=== PATIENT | male | born 1945 | race Caucasian/White ===

== ENCOUNTER → 2021-11-01 09:13 | Outpatient (BNVA) | payer OTHER, SELFPAY | PROVIDERS: Family Provider Emergency Medicine Emergency Medical Services; PCP Emergency Medicine Emergency Medical Services; Visit Provider Urology | DX: R31.29 Other microscopic hematuria (principal) | CPT/HCPCS: 51741; 51798; 52000; 81003; 88112; 99203 ==

== ENCOUNTER → 2021-11-28 12:39 | Outpatient (BNVA) | payer OTHER, SELFPAY | PROVIDERS: Family Provider Emergency Medicine Emergency Medical Services; PCP Emergency Medicine Emergency Medical Services; Visit Provider Internal Medicine Pulmonary Disease | DX: J44.9 Chronic obstructive pulmonary disease, unspecified (principal); F17.210 Nicotine dependence, cigarettes, uncomplicated; J90 Pleural effusion, not elsewhere classified; Z90.2 Acquired absence of lung [part of]; Z98.890 Other specified postprocedural states | CPT/HCPCS: 99204 ==

== ENCOUNTER 2021-12-06 08:21 | Outpatient (CLI) | payer OTHER, SELFPAY ==
--- NOTE | 2021-12-06 08:30 | CT_ITS ---
WS: [id number] CT ABDOMEN PELVIS TECHNIQUE: Noncontrast CT of the abdomen and contrast-enhanced CT of the abdomen and pelvis with indigo nal and sagittal reformatted images. CLINICAL INFORMATION: Mircoscopic Hematuria COMPARISON: None. DLP: 2394.[address] scans at [facility] use at least one of these dose optimization techniques: automated e xposure control; mA and/or kV adjustment per patient size (includes targeted exams where dose is matc hed to clinical indication); or iterative reconstruction. FINDINGS: Mild diffuse fatty infiltration liver. Normal portal vein and splenic vein. Normal GE junction. Aruna l spleen. Subsegmental atelectasis in the RIGHT lower lobe. Small RIGHT pleural effusion. Normal panc reatic parenchymal enhancement. Adrenal glands are normal. Normal renal parenchymal enhancement. No h ydronephrosis. No obstructing renal or ureteral calculi. No visualized renal lesions. Normal ureteral excretion on t he delayed images. Normal filling of the bladder. No filling defects in the bladder. Mild diffuse bella dder wall thickening. Enlarged prostate measuring 3.8 x 2.5 CM. Mild bladder outlet obstruction. Moderate aortic calcification. Celiac and SMA are patent. Mild to moderate stenosis at the SMA origin which remains patent. Rectal constipation with distention. Sigmoid diverticulosis. No evidence of acute diverticulitis. Nor mal appendix in the RIGHT lower quadrant. Thoracolumbar scoliosis. Disc space narrowing worse at L1-2 and L4-5 with endplate sclerosis. Slightly aneurysmal infrarenal abdominal aorta measuring 2.2 cm in maximum AP dimension. CT/CT abdomen pelvis wo/w [id number] IMPRESSION: 1. No hydronephrosis in either kidney. No obstructing renal or ureteral calcul i. 2. Normal renal parenchymal enhancement. No visualized renal lesions. 3. Normal excretion on the delayed imaging. 4. Enlarged prostate with mild bladder outlet obstruction. Recommend correlati on PSA. 5. Slightly aneurysmal infrarenal abdominal aorta measuring 2.2 cm in maximum dimension with moderate aortic calcification. 6. Sigmoid diverticulosis. 7. Rectal distention with constipation.
[2021-12-06] MEDS: iohexol 350 mg/mL 100 mL Btl IV (09:02)
[2021-12-06 09:35] LABS: Blood Urea Nitrogen 8 mg/dL (8-23)
== END 2021-12-06 08:22 | disposition home or self-care (01) ==
LOC: RAD 08:26
PROVIDERS: PCP Emergency Medicine Emergency Medical Services; Visit Provider Urology
DX: R31.29 Other microscopic hematuria (principal)
CPT/HCPCS: 74178; 82565; 84520; 99213

== ENCOUNTER 2021-12-24 09:36 | Outpatient (CLI) | payer OTHER, SELFPAY ==
--- NOTE | 2021-12-24 11:15 | CT_ITS ---
WS: [id number] LDCT LUNG CANCER SCREENING HISTORY: lung screening TECHNIQUE: Axial imaging performed from the apices to 1 cm below the costophrenic angles. Coronal and sagittal reformats are submitted with axial MIP series. All CT scans at [facility] use at least one of these dose optimization techniques: automated exposure control; mA and/or kV adjustment per patient size (includes targeted exams where dose is matched to clinical indication); or iterativ e reconstruction. DLP: 77.21 mGy.cm DIvol: Mean CTDIvol: 1.60 (mGy) COMPARISON: 10/22/2017 Diagnostic quality: Satisfactory Lung Nodules: Centrilobular emphysema. RIGHT lower lobectomy. Pleural thickening in the posterior RIG HT upper thorax. Dystrophic calcifications central RIGHT lung probably at the surgical site. There do es appear to be some adjacent sutures. No pulmonary mass. No nodules are identified. There is a very small focus of groundglass attenuation LEFT upper lobe, image 81 of series 5 measuring 6 mm. Heart: Normal size heart. Slight shift of mediastinal structures to the RIGHT due to the lobectomy. E xtensive coronary artery calcifications. No effusion. Other findings: Atherosclerosis aorta. Mediastinal and hilar calcified lymph nodes. No enlarged lymph nodes are identified. CT/CT lung screening [id number] IMPRESSION: LUNG-RADS: 1-Negative FOLLOW UP: 12 Month: Continue annual screening with LDCT OTHER FINDINGS (S MODIFIER): None.
== END 2021-12-24 09:37 | disposition home or self-care (01) ==
LOC: RT 09:37
PROVIDERS: PCP Emergency Medicine Emergency Medical Services; Visit Provider Internal Medicine Pulmonary Disease
DX: J44.9 Chronic obstructive pulmonary disease, unspecified (principal); Z12.2 Encounter for screening for malignant neoplasm of respiratory organs; F17.210 Nicotine dependence, cigarettes, uncomplicated
CPT/HCPCS: 71271; 94060; 94618; 94726; 94729; J7611

== ENCOUNTER → 2022-08-25 15:16 | Outpatient (BNVA) | payer OTHER, SELFPAY | PROVIDERS: PCP Emergency Medicine Emergency Medical Services; Referring Provider Emergency Medicine Emergency Medical Services; Visit Provider Dermatology | DX: L72.0 Epidermal cyst (principal); L57.0 Actinic keratosis; L98.8 Other specified disorders of the skin and subcutaneous tissue; L57.8 Other skin changes due to chronic exposure to nonionizing radiation; L82.1 Other seborrheic keratosis; L73.8 Other specified follicular disorders; D18.01 Hemangioma of skin and subcutaneous tissue | CPT/HCPCS: 11443; 17000; 99203 ==

== ENCOUNTER 2023-01-20 10:48 | Outpatient (CLI) | payer OTHER, SELFPAY ==
--- NOTE | 2023-01-20 11:00 | USCV_ITS ---
Juan Jose Carias Age: 77 Gender: M : 1945 Exam Date: 01/20/2023 11:38 Ordering Phys: Bong Anaya Technologist: Exam Location: [facility] [place] Indication: sob chest pain BP: 130 / 70 HR: 77 Rhythm: Sinus Technical Quality: Adequate MEASUREMENTS (Male / Female) Normal Values 2D ECHO LV Diastolic Diameter PLAX 3.7 cm 4.2 - 5.9 / 3.9 - 5.3 cm LV Systolic Diameter PLAX 2.7 cm IVS Diastolic Thickness 1.0 cm 0.6 - 1.0 / 0.6 - 0.9 cm IVS Systolic Thickness 1.2 cm LVPW Diastolic Thickness 1.0 cm 0.6 - 1.0 / 0.6 - 0.9 cm LVPW Systolic Thickness 1.5 cm LVOT Diameter 2.0 cm LV Ejection Fraction 2D Teich 51.2 % LV Ejection Fraction MOD 2C 75.6 % LV Ejection Fraction 2C AL 77.2 % LA Diameter 3.3 cm IVC Diameter 2.1 cm M-MODE Aortic Annulus Diameter 3.5 cm LA Ao Ratio MM 0.9 MV E Point Septal Separation 0.8 cm DOPPLER AV Peak Velocity 188.0 cm/s LVOT Peak Velocity 98.0 cm/s AV Area Cont Eq vti 1.4 cm squared AV Area Cont Eq pk 1.7 cm squared MV Area PHT 5.0 cm squared Mitral E to A Ratio 1.0 MV E' Velocity 50.5 cm/s Mitral E to MV E' Ratio 7.4 Mitral E to LV E' Lateral Ratio 6.8 Mitral E to LV E' Septal Ratio 8.2 TR Peak Velocity 223.0 cm/s TR Peak Gradient 19.9 mmHg RV Acceleration Time 0.1 s FINDINGS Left Ventricle Normal left ventricular size, systolic function and wall thickness, with no regional wall motion abnormalities. Left ventricular ejection fraction is estimated at 65-70 %. Right Ventricle Normal right ventricular size and systolic function. Right Atrium Normal right atrial size. Left Atrium Normal left atrial size. Mitral Valve Thickened mitral valve. Trace mitral valve regurgitation. Aortic Valve Thickened aortic valve. No aortic valve stenosis. No aortic valve regurgitation. Tricuspid Valve Structurally normal tricuspid valve. Normal RV and pulmonary pressures Pulmonic Valve Structurally normal pulmonic valve. Pericardium No pericardial effusion. Aorta Normal size aortic root and proximal ascending aorta. IVC Normal IVC dimension with >50% respiratory change of the inferior vena cava. CONCLUSIONS 1. Normal left ventricular function. LVEF 65 to 70% 2. No significant valvular abnormality noted 3. Normal right heart and pulmonary pressures. Nazia Bassett MD (Electronically Signed) Final Date: 20 January 2023 15:09 S
[2023-01-20 11:15] VITALS: PULSE 76; RESP 18; O2SAT 98
[2023-01-20 11:19] VITALS: PULSE 75
[2023-01-20] MEDS: albuterol 2.5 mg/3 mL Neb INHALATION (11:28)
== END 2023-01-20 10:49 | disposition home or self-care (01) ==
LOC: RT 10:49
PROVIDERS: PCP Emergency Medicine Emergency Medical Services; Visit Provider Chiropractor
DX: R06.02 Shortness of breath (principal); R07.9 Chest pain, unspecified
CPT/HCPCS: 93306; 94060; J7613

== ENCOUNTER 2023-09-22 09:10 | Outpatient (CLI) | payer OTHER, SELFPAY ==
--- NOTE | 2023-09-22 09:12 | PETR_ITS ---
PROCEDURE INFORMATION: Exam: PET/CT Skull Base to Mid-thigh Exam date and time: 09/22/2023 9:51 AM Age: 78 years old Clinical indication: Abnormal findings; Abnormal CT scan; Additional info: Abnormal ldct LABS AND CLINICAL REPORTS: Glucose: 104 mg/dl Treatment strategy for malignancy (PET staging): Restaging (PS) TECHNIQUE: Imaging protocol: Following at least four-hour fasting and following the injection of radiopharmaceutical, low dose CT images were obtained. Then, PET images were obtained. Attenuation corrected images were constructed using the CT scan. Fused images of PET and CT were reviewed. The standardized uptake values (SUV) reported below are maximum values within a region of interest, expressed in gm/ml. Exam includes orbital meatal line to mid-thigh. Radiopharmaceutical: 13.2 mCi F-18 FDG (Fluorodeoxyglucose), IV. Time of imaging post radiopharmaceutical administration: 1 hour Injection site: Left antecubital vein COMPARISON: PET-CT 12/12/2017, CT chest lung screening 12/24/2021 FINDINGS: Brain: Visualized brain has normal physiologic uptake. Pharynx: No abnormal uptake. Larynx: No abnormal uptake. Lungs, pleura and trachea: No abnormal uptake. Status post right lower lobectomy. Dense dependent consolidation in the right lung is suggestive of atelectasis. 7 mm calcified nodule in the right upper lobe noted on axial image 91. 6 mm ground-glass opacity nodule in the left upper lobe on axial image 68 is stable since prior exam of 2018 compatible with benign finding. Mild centrilobular emphysema. No pleural effusion. Heart: Normal physiologic uptake. There is no cardiomegaly. Coronary artery calcification is present. There is no pericardial effusion. Mediastinal space: No abnormal uptake. Liver: No abnormal uptake. Gallbladder and biliary ducts: No abnormal uptake. No calcified gallstones. Pancreas: No abnormal uptake. Spleen: No abnormal uptake. No splenomegaly. Adrenal glands: No abnormal uptake. No lung nodules. Kidneys and ureters: Normal physiologic uptake. No hydronephrosis. Stomach and bowel: No abnormal uptake. Vasculature: No abnormal uptake. No aortic aneurysm. Lymph nodes: No abnormal uptake. No lymphadenopathy in the head, neck, chest, abdomen, pelvis, and extremities. There is stable sequela of exposure to granulomatous disease with calcified mediastinal and bilateral hilar lymph nodes. Skeleton: No abnormal uptake in the visualized axial and appendicular skeleton. Soft tissues: No abnormal uptake in the visualized head, neck, chest, abdomen, pelvis, and extremities. Small fat containing right inguinal hernia. PET/PET skull to thigh SUBS [id number] IMPRESSION: No abnormal radiotracer uptake.
== END 2023-09-22 09:11 | disposition home or self-care (01) ==
PROVIDERS: PCP Emergency Medicine Emergency Medical Services; Visit Provider Nurse Practitioner Family
DX: R91.8 Other nonspecific abnormal finding of lung field (principal); Z90.2 Acquired absence of lung [part of]; I70.0 Atherosclerosis of aorta; I89.8 Other specified noninfective disorders of lymphatic vessels and lymph nodes; K40.91 Unilateral inguinal hernia, without obstruction or gangrene, recurrent
CPT/HCPCS: 78815; A9552

== ENCOUNTER → 2023-11-20 11:06 | Outpatient (BNVA) | payer OTHER, SELFPAY | PROVIDERS: PCP Emergency Medicine Emergency Medical Services; Visit Provider Student in an Organized Health Care Education/Training Program | DX: Z12.11 Encounter for screening for malignant neoplasm of colon (principal) | CPT/HCPCS: 99204 ==

== ENCOUNTER 2024-01-19 10:20 | Day surgery (SDC) | payer OTHER, SELFPAY ==
--- OUTSIDE RECORDS SUMMARY | 2023-12-17 09:23 | XMS_ITS ---
Author Name Unknown Organization [facility] Address [address] [place] [address], [place] [address] Care Team Providers Care Electrical Assistant Name Role Phone TJ TAVERAS, LAURENT Primary Care Provider Unavailab Flo Ruiz Unavailable [phone] [place] Auth. - Popular [place] Unavailable Unavail able REASON FOR VISIT Disc Encounters Encounter Location Date Provider Diagnosis [facility] [address] [place] [address] [place] [address] 09/21/2023 Flo Mckeon Plan Of Treatment Next Appt Details Provider Name:Flo Mckeon, 09/08/2024 11:10:00 AM, [address] [place] [address] LAILA Begum, [place], [address], Progress Notes * SILAS PYLE GDOB:[birth year] (78 yo M)Acc No.[id number]:09/21/2023 Patient:?SILAS PYLE :1945???Age:78 Y???Sex:Male Address:[address] [place] [address] , [place] [address] * true * Date:? Generated for Printi ng/Abhishekg/eTransmitting on:?12/17/2023 09:23 AM CDT
--- OUTSIDE RECORDS SUMMARY | 2023-12-17 09:23 | XMS_ITS ---
Author Name Unknown Organization [facility] Address [address] [place] [address] Care Team Providers Care Lehr Operator Name Role Phone LAURENT SPENCER MD Primary Care Provider Unavailab Flo Ruiz Unavailable [phone] [place] Auth. - Popular [place] Unavailable Unavail able Allergies No Known Allergies REASON FOR VISIT [id number], Abnormal chest CT Medications Medication SIG (Take, Route, Fr equency, Duration) Notes Start Date End Date Status Vitamin B 12 500 MCG 1 tablet Orally Once a day Active Vitamin D3 Complete Active Terazosin HCl 1 MG 1 capsule Orally fou r times a day Active PreserVision AREDS - as directed Orally Active Social History Tobacco Use: Social History Observation Description Date Details (start date - stop date) Current Smoker NA - NA Tobacco Control (Standard) Question Answer Notes Tobacco use: Current smoker How often do you smoke cigarettes? Every day How many cigarettes a day do you smoke? 11-20 How soon after you wake up do you smoke your fir st cigarette? 6-30 minutes Problems Problem Type SNOMED Code ICD Code Onset Dates Problem Status W/U Status Risk Notes Problem Radiology result abnormal (525822620) Abnormal chest CT (R93.89) Active confirmed Problem Centrilobular emphysema (52435078) Centrilobular emphysema (J43.2) Active confirmed Problem Tobacco user (140026186) Cigarette nicotine dependence without complication (F17.210) Active confirmed Problem COPD - Chronic obstructive pulmonary disease (05489444) COPD (chronic obstructive pulmonary disease) (J44.9) Active confirmed Vital Signs Temperature 97.8 degrees Fahrenheit 09/28/19 24 Blood pressure systolic 141 mm Hg 09/28/19 24 Blood pressure diastolic 74 mm Hg 024 Heart Rate 63 /min 09/28/2023 Respiratory Rate 19 /min 09/28/2023 Weight 125.44 lbs 09/28/2023 Weight-kg 56.9 kg 09/28/2023 Encounters Encounter Location Date Provider Diagnosis [facility] [address] [place] [address] DR WETZEL TAM[place]KO, [place] [address] 09/28/2023 Flo Mckeon Centrilobular emphys azalia J43.2 ; Cigarette nicotine dependence without complication F17.210 ; Encounter for smoking cessation counseling Z71.6 and COPD (chronic obstructive pulmonary disease) J44.9 Assessments Encounter Date Diagnosis (ICD Code) Assessment Notes Treat ment Notes Treatment Clinical Notes 09/28/2023 Centrilobular emphysema (ICD-10 - J43.2) Continue Wixela 09/28/2023 Cigarette nicotine dependence without complication (ICD-10 - F17.210) He smoked 1 pack of cigarettes a day for 53 years and has smoked a half pack a day for the last 5 years. Smoking cessation emphasized. Obtain CT scan for lung cancer screening August 26, 2024. 09/28/2023 Encounter for smoking cessation counseling (ICD-10 - Z71.6) 09/28/2023 COPD (chronic obstructive pulmonary disease) (ICD-10 - J44.9) [facility] History of albuterol. 09/28/2023 Other Juliane, Neha howe, am scribing for and in the presence of Dr. Flo Mckeon. I, Dr. Flo Mckeon, personally performed the services described in this documentation, as scribed by Neha Yoder in my presence, and is both accurate and complete. Plan Of Treatment Treatment Notes Assessment Notes Centrilobular emphysema Continue Wixela Cigarette nicotine dependenc e without complication He smoked 1 pack of cigarettes a day for 53 years and has smoked a half pack a day for the last 5 years. Smoking cessation emphasized. Obtain CT scan for lung cancer screening August 26, 2024. COPD (chronic obstructive pulmonary dise ase) [facility] History of albuterol. Future Test Test Name Order Date CT Lung Cancer Screening Low Dose-[id number] 08/26/2024 Next Appt Details Follow Up: August 2024, Reason : review CT scan for lung cancer screening Provider Name:Flo Mckeon, 09/08/2024 11:10:00 AM, [address] [place] [address] [address]MAN, [place], [address], Progress Notes * SILAS PYLE GDOB:[birth year] (78 yo M)Acc No.[id number]:09/28/2023 Progress Notes Patient:?SILAS YPLE Provider:?Flo Mckeon MD :1945???Age:78 Y???Sex:Male Madan e:09/28/2023 Address:[address] [place] [address] , [facility] Pcp:LAURENT SPENCER MD Check In:02:00 PM CSTCheck O ut:02:59 PM EP TECH Subjective: * Chief Complaints: * ???[id number] chest CT * HPI: ???::?The patient is a 78-year-old male referred for evaluation and management of abnormal chest CT findings. I reviewed the chest images obtained on August 27, 2023 showing emphysematous changes. He has a history of lobectomy in the past for a benign nodule apparently.? He has had a history of a COPD diagnosis,?diagnosed 10 years ago. He is doing well on Wixela. He is a current smoker, smoking a pack a day for 53 years before cutting down to smoking half a pack a day in the last 5 years. * ROS:?Review of systems of chart has been reviewed and scanned in by me. * Medical History:? * Surgical History:?Lobectomy Hernia * Hospitalization/Major Diagno stic Procedure:?See Surgical HX * Family History:?Father: dece ased, Says not medical issues.?Mother: , Says no medical issues.? * Social History:?Tobacco Use:?Tobacco Control (Standard)?Tobacco use:?Current smoker ?How often do you smoke cigarettes??Every day ?How many cigarettes a day do you smoke??11-20 ?How soon after you wake up do you smoke your first cigarette??6-30 minutes * Medications:?TakingPreserVis ion AREDS - Tablet as directed Orally Vitamin D3 Complete Vitamin B 12 500 MCG Tablet 1 tablet Orally Once a day Terazosin HCl 1 MG Capsule 1 capsule Orally four times a day Medication List reviewed and reconciled with the patientTaking PreserVision AREDS - Tablet as directed Orally Taking Vitamin D3 Complete Taking Vitamin B 12 500 MCG Tablet 1 tablet Orally Once a day Taking Terazosin HCl 1 MG Capsule 1 capsule Orally four times a day Medication List reviewed and reconciled with the patient * Allergies:?N.K.D.A.no[Allerg ies Verified] Objective: * Vitals:?Wt:125.44lbs, Wt-k.9 kg, Temp:97.8F, BP:141/74mm Hg, HR:63/min, RR:19/min, Inhaled Oxygen Flow Rate: 95 L/min, O2 Source: RA. * Examination: ???General Examination: ?GENERAL APPEARANCE:?awake, not in respiratory distress.?EYES:?extraocular muscles intact.?EARS:?normal hearing.?SKIN:?warm and moist.?HEART:?no murmurs, rubs, gallops, no edema.?LUNGS:?no wheezes, rales, rhonchi, diminished breath sounds throughout.?NEUROLOGIC:?alert, oriented.?PSYCH:?normal mood with appropriate affect.? Assessment: * Assessment: 1.?Centrilobular emphysema - J43.2 (Primary)???2.?Cigarette nicotine dependence without complication - F17.210???3.?Encounter for smoking cessation counseling - Z71.6???4.?COPD (chronic obstructive pulmonary disease) - J44.9??? Plan: * Treatment: 2.?Cigarette nicotine depend ence without complication?Imaging: CT Lung Cancer Screening Low Dose-41665 (Ordered for 08/26/2024) Notes: He smoked 1 pack of cigarettes a day for 53 years and has smoked a half pack a day for the last 5 years. Smoking cessation emphasized. Obtain CT scan for lung cancer screening August 26, 2024. ?? 3.?COPD (chronic obstructive pulmonary disease)? Notes: [facility] W[facility]ela[facility] History of albuterol. ?? 4.?Others? Clinical Notes: I, Neha Yoder, am scribing for and in the presence of Dr. Flo Mckeon. I, Dr. Flo Mckeon, personally performed the services described in this documentation, as scribed by Neha Yoder in my presence, and is both accurate and complete.?? * ??Immunizations:? ??Immunization record has be en reviewed and updated. * Procedure Codes:? * Follow Up:?August 2024 (Reason : review CT scan for lung cancer screening) Care Plan: * Problems:? * Billing Information: * Visit Code:? 42842 Office Visit, New Pt., Level 4. * Procedure Codes:? * Sign off status: Completed true * Provider:?Flo Mckeon MD Date:?09/28/19 24 Generated for Meagan jauregui/Rafy/Pacoitting on:?12/17/2023 09:23 AM CDT History and Physical Notes * Examination Category Sub-Category Detail Notes General Examination GENERAL APPEARANCE: awake, n ot in respiratory distress EYES: extraocular muscles intact EARS: normal hearing HEART: no murmurs, rubs, ga llops, no edema LUNGS: no wheezes, rales, r honchi, diminished breath sounds throughout NEUROLOGIC: alert, oriented SKIN: warm and moist PSYCH: normal mood with francisco ropriate affect
--- OUTSIDE RECORDS SUMMARY | 2023-12-17 09:23 | XMS_ITS | Patient Health Record ---
Author Name Unknown Organization [facility] Address [address] [place] [address] Care Team Providers Care [employer] Name Role Phone TJ TAVERAS, LAURENT Primary Care Provider Unavailab Flo Ruiz Unavailable [phone] [place] Auth. - Popular [place] Unavailable Unavail able Allergies No Known Allergies Results Component Value Reference Range Notes zzzCT Outside CD Reviewed date:09/22/2023 10:27:46 AM Interpretation: Performing Lab: Notes/Report: cro=[id number]=iSite [id number] &org=iSit e Reason For Referral Reason Abn CT: [facility] ed Diagnosis 1 Other nonspecific ab normal finding of lung field (R91.8) Referring Provider First Name Porter Blu Referring Provider Last Name AL Ref[facility] Organization [facility] Referred Provider Flo Mckeon Referred Address [address] [place] [address] [address],[place], [place],[address], Referred Provider Specialty Pulmonary Di seases General Notes Yane Wisdom 024 02:47:46 PM >Disc Received 09/18/2023, Yane Wisdom 09/22/2023 02:49:30 PM >09/21: Gave report to PRVDR to review, Yane Wisdom 09/22/2023 03:02:04 PM >09/21: 1 wk per Artis Mckeon Marie 09/22/2023 03:40:31 PM >Scheduled 09/28/23 @ 2:30 PM Referral Priority Routine Medications Medication SIG (Take, Route, Fr equency, [...] Problem Status W/U Status Risk Notes Problem Centrilobular emphysema (64569716) Centrilobular emphysema (J43.2) Active confirmed Problem Radiology result abnormal (207094638) Abnormal chest CT (R93.89) Active confirmed Problem Tobacco user (915415309) Cigarette nicotine dependence without complication (F17.210) Active confirmed Problem COPD - Chronic obstructive pulmonary disease (54012779) COPD (chronic obstructive pulmonary disease) (J44.9) Active confirmed Vital Signs Heart Rate 63 /min 09/28/2023 Temperature 97.8 degrees Fahrenheit 09/28/2023 Respiratory Rate 19 /min 09/28/2023 Blood pressure diastolic 74 mm Hg 09/28/2023 Weight-kg 56.9 kg 09/28/2023 Blood pressure systolic 141 mm Hg 09/28/2023 Weight 125.44 lbs 09/28/2023 Encounters Encounter Location Date Provider Diagnosis [facility] [address] [place] [address] [place] [address] 09/28/2023 Flo Mckeon Centrilobular emphys azalia J43.2 ; Cigarette nicotine dependence without complication F17.210 ; Encounter for smoking cessation counseling Z71.6 and COPD (chronic obstructive pulmonary disease) J44.9 [facility] [address] [place] [address] [place] [address] 09/21/2023 Flo Mckeon Assessments Encounter Date Diagnosis (ICD Code) Assessment [...] [facility] History of albuterol. 09/28/2023 Other I, Neha howe, am scribing for and in the presence of Dr. Flo Mckeon. I, Dr. Flo Mckeon, personally performed the services described in this documentation, as scribed by Neha Yoder in my presence, and is both accurate and complete. Plan Of Treatment Next Appt Details Provider Name:Flo Mckeon, 09/08/2024 11:10:00 AM, [address] [place] [address] [place], [address], Insurance Providers Payer Name Payer Address Payer Phone Subscriber Number Group Number Insured Name Patient Relationship to Insured Coverage Start Date Coverage End Date [employer] [address] [place] [phone] [id number] SILAS PYLE Self - patient is the insured Medical (General) History Medical History History ICD Code measles hernia back trouble hemorrhoids Surgical History Surgery Date(Month/Year) Lobectomy Hernia Hospitalization History Reason Date(Month/Year) See Surgical HX
[2024-01-19 10:32] VITALS: BP 97/50; PULSE 77; RESP 16; TEMP 36.4; O2SAT 93
[2024-01-19] MEDS: sodium chloride 0.9% 1,000 ML 30 ML IV (10:38)
[2024-01-19 10:40] VITALS: BMI 20.3
--- NOTE | 2024-01-19 11:31 | ANES.PREANE2 ---
Pre-Anesthetic Assessment Height/Weight: Height 1.7 m Weight 58.967 kg Temp Pulse Resp BP Pulse Ox O2 Del Method 97.6 F 77 16 97/50 93 Room Air 01/19/24 10:32 01/19/24 10:32 01/19/24 10:32 01/19/24 10:32 01/19/24 10:32 01/19/24 10:32 Operation Date: 01/19/24 11:30 Proposed Procedures p Colonoscopy 56359, G0105, Z12.11(Not Applicable) - Tej Morales MD Familial anesthetic complications: None Was Beta Vanessa taken within 24 hours: N/A Was Clonidine taken within 24 hours: N/A Last intake: Intake Last Liquid Date 01/18/24 Last Liquid Time 22:30 Last Solid Date 01/17/24 Last Solid Time 17:00 Social Alcohol (4-5 beers a day) and Tobacco 1 pack(s) per day Exam alert, oriented x 3 and regular rate & rhythm BBS diminished Airway Submandibular: within normal limits (Jaw pops ) Cervical ROM: within normal limits Mallampati: Class II Dentition: false History/ROS No significant history except as noted and No significant complaints Pulmonary Chronic Obstructive Pulmonary Disease and Exertional Dyspnea Right lower lobe lobectomy and wedge resection CV/HEM Coronary Artery Disease CONCLUSIONS 1. Normal left ventricular function. LVEF 65 to 70% 2. No significant valvular abnormality noted 3. Normal right heart and pulmonary pressures. None reported Hepatic None reported GI Hiatal Hernia Musc/skel Lower Back Pain, Osteoarthritis/DJD and Weakness (Can perform ADLs without issue) Neuropsych Neuropathy Anesthetic Plan ASA status: 3 Anesthesia: Anesthesia Evaluation, General and MAC Risk of > 500 ml blood loss (7ml/kg in children): No Medications/Allergies Home Medications Medication Instructions Recorded Confirmed Last Taken Type terazosin 2 mg capsule 8 mg PO DAILY 11/01/21 01/19/24 01/14/24 History albuterol sulfate 90 mcg/actuation 2 puff inhalation Q6H PRN 11/28/21 01/19/24 01/17/24 History aerosol inhaler Shortness Of Breath Or Wheezing fluticasone 250 mcg-salmeterol 50 1 inh inhalation BID #60 ea 12/17/22 01/19/24 01/14/24 Rx mcg/dose blistr powdr for inhalation ([facility]ix[facility] Inhub) ondansetron 8 mg disintegrating 8 mg PO Q8H PRN nausea and 01/18/24 01/19/24 01/17/24 Rx tablet vomiting #7 tabs Allergies Allergy/AdvReac Type Severity Reaction Status Date / Time No Known Allergies Allergy Verified 01/14/24 10:51 Current Medications Generic Name Dose Route Start Last Admin Trade Name Freq PRN Reason Stop Dose Admin Sodium Chloride 1,000 mls @ 30 mls/hr 01/19/24 10:30 01/19/24 10:38 Sodium Chloride 0.9% IV 30 mls/hr .Q24H PEDRO Administration PFSH Anesthesia Medical History COPD, severe Surgical History (Updated 11/20/23 @ 11:14 by Glory Mercado) History of lobectomy of lung History of lung surgery Family History Mother , in 80s Healthy adult Father , at age 92 Healthy adult Social History Smoking and tobacco/nicotine status: current every day tobacco/nicotine user cigarettes Packs smoked per day: 1 Years cigarettes smoked: 56 Alcohol intake: current Alcohol intake frequency: 0-2 Drinks per Day Adopted: No Lives independently: Yes Household members: spouse Marital status: Current occupational status: employed and retired Data Anesthesia Cardiac Studies: Echocardiogram 01/20/23
--- NOTE | 2024-01-19 12:01 | W.PM.OPSFHP ---
Same Day Surgery H&P Indication for Procedure/HPI DATE OF PROCEDURE: January 19, 2024 CHIEF COMPLAINT/INDICATIONFOR SURGICAL PROCEDURE: screening colonoscopy PREOP DIAGNOSIS: screening colonoscopy PLANNED PROCEDURE: Operation Date: 01/19/24 11:30 Proposed Procedures p Colonoscopy 81454, G0105, Z12.11(Not Applicable) - Tej Morales MD Medications/Allergies* Home Medications Medication Instructions Recorded Confirmed Type terazosin 2 mg capsule 8 mg PO DAILY 11/01/21 01/19/24 History albuterol sulfate 90 mcg/actuation 2 puff inhalation Q6H PRN 11/28/21 01/19/24 History aerosol inhaler Shortness Of Breath Or Wheezing Allergies/Adverse Reactions Allergy/AdvReac Type Severity Reaction Status Date / Time No Known Allergies Allergy Verified 01/14/24 10:51 Current Medications: Generic Name Dose Route Start Last Admin Trade Name Freq PRN Reason Stop Dose Admin Sodium Chloride 1,000 mls @ 30 mls/hr 01/19/24 10:30 01/19/24 10:38 Sodium Chloride 0.9% IV 30 mls/hr .Q24H PEDRO Administration Pertinent History/Comorbid Conditions* Medical History (Updated 12/01/21 @ 14:02 by Arnel Palafox MD) COPD, severe Surgical History (Updated 12/01/21 @ 14:02 by Arnel Palafox MD) History of lobectomy of lung History of lung surgery Family History (Updated 11/01/21 @ 09:52 by Humphrey Reyes) Father, at age 92 Mother, in 80s Healthy adult Mother Father Social History Smoking and tobacco/nicotine status: current every day tobacco/nicotine user cigarettes Packs smoked per day: 1 Years cigarettes smoked: 56 Alcohol intake: current Alcohol intake frequency: 0-2 Drinks per Day Adopted: No Lives independently: Yes Household members: spouse Marital status: Current occupational status: employed and retired Pertinent Exam Findings alert, oriented x 3, clear to auscultation bilaterally, regular rate & rhythm and procedure specific exam findings abdomen soft, nt, nd Recommendations Surgery/Procedure today Coding Level of Care Code Acute Code for Chg Fwd
[2024-01-19 13:45] VITALS: BP 114/56; PULSE 76; RESP 18; TEMP 36.2; O2SAT 96
[2024-01-19 13:58] VITALS: BP 97/53; PULSE 76; RESP 18; TEMP 36.2; O2SAT 93
--- NOTE | 2024-01-19 14:30 | ANE.PACU2 ---
Inpatient post-anesthesia follow up: Airway intact: Yes Vital signs: Temperature 97.1 F Pulse Rate 76 Respiratory Rate 18 Blood Pressure 97/53 Pulse Oximetry 93 Oxygen Delivery Me thod Room Air Oxygen Flow Rate Fraction of Inspir ed Oxygen Hydration adequate: Yes Nausea and vomiting: No Pain level: 1 Mental status: Baseline
== END 2024-01-19 14:16 | disposition home or self-care (01) ==
PROVIDERS: PCP Nurse Practitioner Family; Visit Provider Student in an Organized Health Care Education/Training Program
PROC: 0DJD8ZZ Inspection of Lower Intestinal Tract, Via Natural or Artificial Opening Endoscopic (ICD-10-PCS; CPT 45378; principal; 2024-01-19 11:30)
DX: Z12.11 Encounter for screening for malignant neoplasm of colon (principal); D12.8 Benign neoplasm of rectum; K57.30 Diverticulosis of large intestine without perforation or abscess without bleeding; J44.9 Chronic obstructive pulmonary disease, unspecified; F17.210 Nicotine dependence, cigarettes, uncomplicated
CPT/HCPCS: 45380; 88305; J2704; J7030